=== PATIENT | female | born 1990 | race Caucasian/White ===

== ENCOUNTER → 2017-01-06 | Outpatient (CLI) | payer BC ==
[2017-01-06 16:04] LABS: URINE APPEARANCE CLEAR (CLEAR); URINE BILIRUBIN NEG (NEG); URINE COLOR YELLOW; URINE NITRITE NEG (NEG); URINE PH 6.5 (4.5-7.5); URINE SPECIFIC GRAVITY 1.028 (1.000-1.030); UROBILINOGEN NEG (NEG)
[2017-01-06 16:05] LABS: MANUAL MICROSCOPIC REQUIRED? NO; REVIEW REQ? NO
== END | disposition home or self-care (01) ==
LOC: C.LABSPEC 15:55
PROVIDERS: ATTEND Obstetrics & Gynecology
DX: Z34.90 Encounter for supervision of normal pregnancy, unspecified, unspecified trimester (principal)

== ENCOUNTER → 2017-01-11 | Outpatient (CLI) | payer BC ==
[2017-01-14 02:03] LABS: CHLAMYDIA TRACH RNA*** NOT DETECTED (NOT DETECTED); GC (NEIS GONORRHOEAE)RNA** NOT DETECTED (NOT DETECTED)
== END | disposition home or self-care (01) ==
LOC: C.LABSPEC 17:44
PROVIDERS: ATTEND Obstetrics & Gynecology
DX: Z34.90 Encounter for supervision of normal pregnancy, unspecified, unspecified trimester (principal)

== ENCOUNTER → 2017-01-11 | Outpatient (CLI) | payer BC ==
[2017-01-11 17:15] LABS: BASO % 0.3 %; BASO ABS # 0.02 K/uL (0-0.2); COMPLETE YES; EOS % 1.3 %; HEMATOCRIT 38.7 % (37-47); IG% 0.1 %; LYMPH % 27.3 %; LYMPH ABS # 1.83 K/uL (1.2-3.4); MEAN CELL VOLUME 85.2 fL (80-100); MEAN CORPUSCULAR HEMOGLOBIN 28.6 pg (25-34); MEAN CORPUSCULAR HGB CONC 33.6 g/dl (32-36); MEAN PLATELET VOLUME 11.2 fL (7.4-10.4); PLATELET COUNT 282 K/uL (130-400); RED BLOOD COUNT 4.54 M/uL (4.2-5.4); WHITE BLOOD COUNT 6.71 K/uL (4.8-10.8)
== END | disposition home or self-care (01) ==
LOC: C.LAB1850 16:29
PROVIDERS: ATTEND Obstetrics & Gynecology
DX: Z34.90 Encounter for supervision of normal pregnancy, unspecified, unspecified trimester (principal)

== ENCOUNTER → 2017-03-11 | Outpatient (CLI) | payer BC ==
[2017-03-11 14:50] LABS: GTGD 50 Grams
== END | disposition home or self-care (01) ==
LOC: C.LAB1850 09:42
PROVIDERS: ATTEND Obstetrics & Gynecology
DX: Z34.90 Encounter for supervision of normal pregnancy, unspecified, unspecified trimester (principal)

== ENCOUNTER → 2017-03-25 | Outpatient (CLI) | payer BC | END | disposition home or self-care (01) | LOC: C.LAB1850 07:09 | PROVIDERS: ATTEND Obstetrics & Gynecology | DX: O28.1 Abnormal biochemical finding on antenatal screening of mother (principal) ==

== ENCOUNTER → 2017-06-04 | Outpatient (CLI) | payer BC ==
[2017-06-04 19:00] LABS: URINE APPEARANCE CLEAR (CLEAR); URINE BILIRUBIN NEG (NEG); URINE COLOR YELLOW; URINE EPITHELIAL CELL AUTO >30 /lpf (0-5); URINE NITRITE NEG (NEG); URINE SPECIFIC GRAVITY 1.009 (1.000-1.030); UROBILINOGEN NEG (NEG)
[2017-06-04 19:04] LABS: MANUAL MICROSCOPIC REQUIRED? NO; REVIEW REQ? NO
== END | disposition home or self-care (01) ==
LOC: C.LABSPEC 17:43
PROVIDERS: ATTEND Obstetrics & Gynecology
DX: Z34.93 Encounter for supervision of normal pregnancy, unspecified, third trimester (principal)

== ENCOUNTER → 2017-06-08 | Outpatient (CLI) | payer BC | END | disposition home or self-care (01) | LOC: C.LAB1850 07:19 | PROVIDERS: ATTEND Obstetrics & Gynecology | DX: Z34.93 Encounter for supervision of normal pregnancy, unspecified, third trimester (principal) ==

== ENCOUNTER → 2017-07-30 | Outpatient (CLI) | payer BC | END | disposition home or self-care (01) | LOC: C.LABSPEC 17:36 | PROVIDERS: ATTEND Obstetrics & Gynecology | DX: Z34.93 Encounter for supervision of normal pregnancy, unspecified, third trimester (principal) ==

== ENCOUNTER 2017-08-10 12:17 | Inpatient (IN) | payer BC ==
[~2017-08-10] VITALS: Ht 165.1 cm; Wt 86.4 kg
[2017-08-10] MEDS ORDERED: LACTATED RINGER'S 1000ML 500 ML IV PRN ×2 (13:02→19:19)
[2017-08-10] MEDS ORDERED: LACTATED RINGER'S 1000ML 1,000 ML IV PRN (13:02)
[2017-08-10] MEDS ORDERED: OXYTOCIN 30 UNITS/500ML NSS IV PRN (13:15)
[2017-08-10] MEDS: LACTATED RINGER'S 1000ML 1,000 ML IV SCH ×2 (13:32→21:59)
[2017-08-10 13:34] LABS: HEMATOCRIT 31.9 % (37-47); HEMOGLOBIN 10.3 g/dL (12.0-16.0); MEAN CELL VOLUME 83.3 fL (80-100); MEAN CORPUSCULAR HEMOGLOBIN 26.9 pg (25-34); MEAN CORPUSCULAR HGB CONC 32.3 g/dl (32-36); MEAN PLATELET VOLUME 11.2 fL (7.4-10.4); PLATELET COUNT 210 K/uL (130-400); RED CELL DISTRIBUTION WIDTH CV 14.8 % (11.5-14.5); RED CELL DISTRIBUTION WIDTH SD 44.7 fL (36.4-46.3); WHITE BLOOD COUNT 6.94 K/uL (4.8-10.8)
[2017-08-10 14:09] VITALS: Ht 165.1 cm; Wt 86.4 kg
--- NOTE | 2017-08-10 14:09 | Medical Student: [facility] ---
Med Student History & Physical Date of Service Aug 10, 2017. Chief Complaint R/O Ruptured Membranes History of Present Illness Source: patient, family, spouse, clinic records Patient is a 27 YOF , TAN of 08/21/2017 by LMP, presents at 38 weeks gestation for ruleout ruptured membranes. Patient believes her membranes ruptured at 0730 this morning. She has not felt any contractions despite frequent walking at home. She is currently 7 hours post-rupture. The patient's course was uncomplicated. The patient was initially noted to have placenta previa, however the placenta has since migrated superiorly and is no longer obstructing the cervical os. Patient denied genetic testing. The patient is currently not experiencing any contractions. AB+, HIV negative, HBV negative, VDRL/RPR nonreactive, C/G negative, rubella immune, and GBS negative.1 hr glucose 141mg/dL 2 hr glucose 119 mg/dL with 75g challenge. She did receive influenza vaccine and TDAP vaccine. H&H 38.7/13, platelets 282k OB History G1 02/2011 ended in induced . COMM[employer]ITY [employer]IVING [employer]ACH History Menarche at age 10. LMP 11/14/2016. Menses usually occur regularly at 28 days. Last pap 12/2015 and was read as normal. No history of abnormal pap smears. History of ovarian cysts in the past. Past Medical History Distant history of anemia as a child. Past Surgical History Tonsillectomy and wisdom tooth extraction. Social History Smoking Status: Never Smoker Smokeless Tobacco Use: No Alcohol Use: none Drug Use: none Marital Status: Housing status: lives with significant other Occupational Status: employed Allergies Coded Allergies: No Known Allergies (Unverified , 08/10/17) Home Medications Multivit/Min/Iron/Fol Ac/Pren ( Vitamin), 1 TAB PO DAILY Review of Systems Constitutional: No fever, No chills, No sweats Respiratory: No cough, No wheezing, No shortness of breath Cardiovascular: + edema (trace edema), No chest pain Abdomen: No pain, No nausea, No vomiting, No diarrhea, No constipation Genitourinary - Female: No dysuria Psychiatric: No depression symptoms Physical Exam General Appearance: WD/WN, no apparent distress Head: normocephalic Respiratory/Chest: chest non-tender, lungs clear, normal breath sounds, no respiratory distress, no accessory muscle use Cardiovascular: regular rate, rhythm, no gallop, no JVD, no murmur, normal peripheral pulses Abdomen / GI: normal bowel sounds, non tender, + pertinent finding (Gravid abdomen. Fundal heigth is above the umbillicus and full term. heart tones present. Fetus is vertex. Estimated weight 7.5lbs. ) Fundal Height: Full term Genitourinary - Female: external genitalia normal, normal pelvic exam (Cervix exam performed by Dr. Church noted to be 2 cm dilated, 75% effaced, with fetus at -2 station. ) Extremities: normal inspection, no calf tenderness, + pedal edema (trace) Neurologic/Psych: alert, normal mood/affect, oriented x 3 Skin: normal color, warm/dry, no rash Monitoring External Monitor: Good variability, accels present, no decellerations noted, category 1 tracing, heart rate baseline of 140's. Tocodynamometer: Intermittent uterine irritability without definite regular uterine contractions. Laboratory Results Test 08/10/17 13:07 08/10/17 13:16 Diagnostic Results Patient was tested for ROM with ferning and Nitrazine test and was found to be positive for ROM. Assessment and Plan Assessment: 27 YOF at 38 weeks GA with confirmed rupture of membranes via fern and nitrazine testing. No complications. tracing category 1. Plan: Admit to L&D. CBC ordered. Given patient has been ruptured for 7 hours without development of regular uterine contractions, will start Pitocin now. Will continue to monitor with EFM and Tocometer. Plan for regular cervix checks to monitor progression of labor.
[2017-08-10] MEDS ORDERED: PRENTAB26 PO (14:10)
[2017-08-10] MEDS ORDERED: EpHEDrine SULFATE INJ 50 MG/ML AMP ONE (17:58)
[2017-08-10] MEDS ORDERED: BUPIVACAINE 0.25% 30 ML VIAL ONE (17:58)
[2017-08-10] MEDS ORDERED: FENTANYL 2MCG/ML ROPIV 1.25MG/ML 100ML BAG EPI ONE (17:59)
[2017-08-10] MEDS ORDERED: FENTANYL CITRATE INJ 50 MCG/1 ML 2 ML VIAL ONE (17:59)
[2017-08-10] MEDS ORDERED: NALOXONE HCL INJ 1 MG in SODIUM CHLORIDE 0.9% 1000ML 1,000 ML IV PRN (19:19)
[2017-08-10] MEDS ORDERED: DiphenhydrAMINE HCL 50 MG/ML VIAL IV PRN (19:30)
[2017-08-10] MEDS ORDERED: ONDANSETRON INJ 2 MG/ML 2 ML VIAL IV PRN (19:30)
[2017-08-10] MEDS ORDERED: NALOXONE HCL INJ 0.4 MG/1 ML VIAL/CARP IV PRN (19:30)
[2017-08-10] MEDS ORDERED: NALBUPHINE HCL INJ 10 MG/ML AMP IV PRN (19:30)
[2017-08-10] MEDS ORDERED: EpHEDrine SULFATE INJ 50 MG/ML AMP IV PRN (19:30)
[2017-08-10] MEDS ORDERED: FENTANYL 2MCG/ML ROPIV 1.25MG/ML 100ML BAG EPI PRN (19:30)
[2017-08-11] MEDS ORDERED: ACETAMINOPHEN 325 MG TAB PO PRN (00:15)
[2017-08-11] MEDS ORDERED: SUPERCREAM 0.870 % 15GM JAR EXT PRN (00:15)
[2017-08-11] MEDS ORDERED: ACETAMINOPHEN/CODEINE 300/30MG TAB PO PRN ×2 (00:15)
[2017-08-11] MEDS ORDERED: OXYTOCIN 30 UNITS/500ML NSS IV PRN (00:15)
[2017-08-11] MEDS ORDERED: BENZOCAINE 20% AER SPR 82.5 GM CAN EXT PRN (00:15)
[2017-08-11] MEDS ORDERED: HYDROCORTISONE ACETATE 25 MG SUPP PR PRN (00:15)
[2017-08-11] MEDS ORDERED: LANOLIN OINT EXT PRN (00:15)
[2017-08-11] MEDS ORDERED: DIPHTHERIA/TETANUS/PERTUSSIS 0.5 ML SYR/VIAL IM. ONE (00:15)
[2017-08-11] MEDS: IBUPROFEN 600 MG TAB PO PRN ×3 (01:10→16:02)
--- NOTE | 2017-08-11 01:23 | DELIVERY SUMMARY ---
DATE OF OPERATION: 08/10/2017 FINDINGS: Viable male with Apgars of 8 and 9. Baby delivered spontaneously over a second degree midline laceration. Cord gases and cord blood samples obtained. Placenta delivered spontaneously and laceration repaired with 4-0 Vicryl in routine fashion. Estimated blood loss 300 mL. LABOR NOTE: The patient is a 27-year-old 2, para 0 with an EDC of 21 August at 38+ weeks gestational age presented with spontaneous rupture of membranes. The patient states her membranes ruptured approximately at 1600 hours on day of delivery. She described the fluid as clear. She has been having mild irregular contractions since rupture of membranes. The patient has had a benign course, her blood type is AB positive, antibody negative, rubella immune, hepatitis B negative, she declined a quad screen, she had an elevated 1-hour Glucola at 16 weeks with normal glucose tolerance tests at 16 and 28 weeks and a negative trimester beta strep culture. Upon admission, the patient was 2 cm dilated, 75% effaced, -2 station with a positive AmniSure. Tracing was category 1. Because of the rupture of membranes and the positive GBS status, the patient was started on Pitocin per induction protocol. She was given penicillin 6 million unit loading dose and 3 million units every 4 hours until delivery. The patient was observed for approximately 5 hours on the Pitocin. She was having regular contractions that were mild to palpation. The examination showed no change in the cervix and her forebag was ruptured and an intrauterine pressure catheter was inserted. After that her contractions increased markedly in intensity. Anesthesia was consulted and an epidural was placed. The patient progressed to full dilatation and began her second stage. She pushed for little over an hour, delivering a viable male infant with description as above. Cord was clamped and cut. Cord gases and cord blood samples obtained. Placenta delivered spontaneously. A midline second degree laceration was repaired with 4-0 Vicryl in a routine fashion. Estimated blood loss 300 mL. Sponge and needle count was correct. I attest to the content of the Intraoperative Record and any orders documented therein. Any exception s are noted below.
[2017-08-11 03:05] VITALS: BP 102/59; PULSE 107; TEMP 37.4
--- NOTE | 2017-08-11 06:45 | Progress Note ---
Subjective Aug 11, 2017. Subjective conversation w/ patient (pt feeling well, getting up to walk around with no s/s pre-syncope or syncope. Tried to go to the bathroom to urinate but unable to start the stream. ), physical exam, chart review, lab review Ambulation: ambulating normally Voiding: requires PRN straight cath (nurse room straight cathing this morning, evacuating 1400 cc's) Lochia: Moderate Feeding Type: Breast Feeding Pain: controlled Review of Systems Respiratory: No shortness of breath Cardiac: No palpitations Female : + problem reported (as above), No dysuria Objective Vital Signs Date Time Temp Pulse Resp B/P (MAP) Pulse Ox O2 Delivery O2 Flow Rate FiO2 08/11/17 03:05 37.4 107 18 102/59 (73) Room Air 08/11/17 03:05 Room Air Physical Exam General Appearance: WELL-APPEARING, WD/WN, NO APPARENT DISTRESS Respiratory/Chest: lungs clear, normal breath sounds, no respiratory distress Cardiovascular: regular rate, rhythm, no gallop Abdomen: normal bowel sounds, soft Fundus: Firm, Non-Tender, Relation to Umbilicus (at U) Extremities: normal inspection, no calf tenderness Laboratory Results Last 24 Hours Test 08/10/17 13:07 08/10/17 13:16 08/11/17 06:08 White Blood Count 6.94 K/uL Red Blood Count 3.83 M/uL Hemoglobin 10.3 g/dL Hematocrit 31.9 % Mean Corpuscular Volume 83.3 fL Mean Corpuscular Hemoglobin 26.9 pg Mean Corpuscular Hemoglobin Concent 32.3 g/dl RDW Standard Deviation 44.7 fL RDW Coefficient of Variation 14.8 % Platelet Count 210 K/uL Mean Platelet Volume 11.2 fL Assessment and Plan Post- Day#: 1 Continue Routine Care: 27 yof , s/p 08/10 at 2345. AB+/RI/GBS - Vitals reviewed and wnl Hgb reviewed, stable. Today's pending. No s/s anemia Pt doing clinically well, required straight cath this morning, voided 1400 cc per nurse. Continue routine care, encourage ambulation, support, monitor lochia, pain control. YINA DILLON FMR PGY 1 Resident Physician Supervision Note: I interviewed and examined the patient. Discussed with Dr. Dillon and agree with findings and plan as documented in the note. Any exceptions or clarifications are listed here: [None] Documented By: Hipolito Church Resident Tracking Resident Involvement: Resident Care Provided Care Provided: OB Delivery
[2017-08-11 07:29] LABS: HEMATOCRIT 28.4 % (37-47)
[2017-08-11 07:37] VITALS: BP 118/77; PULSE 86; TEMP 36.9; O2SAT 100
--- NOTE | 2017-08-11 07:59 | Anesthesia Procedure Note ---
Anesthesia Epidural Removal Nt Date & Time Aug 11, 2017 at 07:59 Vital Signs Pain Intensity: 0.0 Vital Signs Past 12 Hours Date Time Temp Pulse Resp B/P (MAP) Pulse Ox O2 Delivery O2 Flow Rate FiO2 08/11/17 03:05 37.4 107 18 102/59 (73) Room Air 08/11/17 03:05 Room Air Notes Mental Status: alert / awake / arousable, participated in evaluation Nausea / Vomiting: adequately controlled Pain: adequately controlled Airway Patency, RR, SpO2: stable & adequate BP & HR: stable & adequate Hydration State: stable & adequate Neuraxial Anesthesia: was administered Anesthetic Complications: no major complications apparent, pt satisfied with anesthetic care Epidural: removed without complications, with tip intact
[2017-08-11] MEDS: FERROUS SULFATE 325 MG TAB PO SCH (08:32)
[2017-08-11] MEDS: PRENATAL VITAMIN TAB PO SCH (08:32)
[2017-08-11] MEDS: DOCUSATE SODIUM 100 MG CAP PO SCH ×2 (08:32→19:43)
[2017-08-11 11:05] VITALS: BP 119/78; PULSE 84; TEMP 36.6; O2SAT 98
[2017-08-11 19:50] VITALS: BP 113/68; PULSE 80; TEMP 37.1
[2017-08-12 00:15] VITALS: BP 121/82; PULSE 88; TEMP 36.7
[2017-08-12] MEDS: IBUPROFEN 600 MG TAB PO PRN ×2 (03:07→08:43)
--- NOTE | 2017-08-12 06:50 | Progress Note ---
Subjective Aug 12, 2017. Subjective conversation w/ patient, physical exam, chart review, lab review Ambulation: ambulating normally Voiding: no voiding problems Diet Tolerance: Regular Diet Lochia: Moderate Feeding Type: Breast Feeding Pain: controlled Review of Systems Respiratory: No shortness of breath Cardiac: No palpitations Abdomen: No vomiting Female : No dysuria Objective Vital Signs Date Time Temp Pulse Resp B/P (MAP) Pulse Ox O2 Delivery O2 Flow Rate FiO2 08/12/17 00:15 Room Air 08/12/17 00:15 36.7 88 18 121/82 (95) 08/11/17 19:50 37.1 80 20 113/68 (83) Room Air 08/11/17 11:05 36.6 84 16 119/78 (92) 98 Room Air 08/11/17 07:37 36.9 86 18 118/77 (91) 100 Room Air 08/11/17 07:37 100 Room Air Physical Exam General Appearance: WELL-APPEARING, WD/WN, NO APPARENT DISTRESS Respiratory/Chest: lungs clear, normal breath sounds, no respiratory distress Cardiovascular: regular rate, rhythm Abdomen: soft Fundus: Firm, Non-Tender, Relation to Umbilicus (1 below U) Extremities: no calf tenderness Laboratory Results Last 24 Hours Test 08/11/17 07:08 08/11/17 08:30 Hemoglobin 9.0 g/dL Hematocrit 28.4 % Assessment and Plan Post- Day#: 2 Continue Routine Care: 27 yof , s/p 08/10 at 2345. AB+/RI/GBS - Vitals reviewed and wnl Hgb reviewed, stable. No s/s anemia Pt doing clinically well, urinating normally without any issues. Continue routine care, encourage ambulation, support, monitor lochia, pain control. Counselled on dc instructions. YINA DILLON FMR PGY 1 Resident Physician Supervision Note: I was present with Dr. Serg Dillon during the history and exam. I discussed the case with the resident and agree with the findings and plan as documented in the note. Any exceptions or clarifications are listed here: doing well. ready for discharge, instructions reviewed. f/u 6 wk pp. Documented By: Christie Soto Resident Tracking Resident Involvement: Resident Care Provided Care Provided: OB Delivery
--- NOTE | 2017-08-12 06:59 | Discharge Instructions ---
Discharge Instructions Date of Service Aug 12, 2017. Admission Reason for Admission: R/O Ruptured Membranes Discharge Discharge Diagnosis / Problem: Spontaneous Vaginal Delivery Discharge Goals Goal(s): Routine recovery after delivery Medications Continue Dispensed Medications: supercream, dermaplast, tucks, lansinoh Activity Recommendations Activity Limitations: per Instructions/Follow-up section . Instructions / Follow-Up Instructions / Follow-Up ACTIVITY RECOMMENDATIONS: * Gradual return to full activity over the next 2-3 weeks. * No lifting - nothing heavier than baby over the next 2-3 weeks. * Do not engage in vigorous exercise, sexual activity or sports until cleared by your physician. * Do not drive or operate any motorized equipment until cleared by your physician. * You may shower/bathe daily. MEDICATIONS: For discomfort or pain, you may use Acetaminophen (Tylenol), Ibuprofen (Advil), or Naproxen (Aleve) following the package directions. For constipation you may use Colace following the package directions. BREAST CARE: If you are not breast feeding: * Wear a supportive bra 24 hours a day for one to two weeks. * Avoid stimulating your breasts and nipples as much as possible during the first few weeks after delivery. * When taking a shower, have the warm water hit your back, not breasts. * When your breasts feel full, apply ice packs. Usually three to four times a day helps ease the discomfort. * Take a mild pain medication (Tylenol / Motrin) when you are uncomfortable. If breast feeding: * Use breast milk to lubricate nipples. Lansinoh cream may be used for sore nipples. You do not need to remove cream prior to breast feeding. If using a different brand of cream, check the label for directions regarding removal of cream prior to nursing. * Wear a supportive bra. * If having problems with breasts or breast feeding, call a programmer analyst consultant or your health care provider. EPISIOTOMY CARE: After delivery, if you have an episiotomy (stitches), the following steps will ease discomfort and aid healing. * For the first 24 hours after delivery, place ice packs next to your episiotomy to help reduce swelling. * After the first 24 hour-period, sitz baths, either portable or in the tub, are suggested. A shower with a shower arm sprayed over the episiotomy may be comforting. * Rosalia care should be done after each voiding and bowel movement. Squirt warm water from a plastic bottle over the perineum (region of the body between the anus and urinary opening) and pat dry. * Use Dermoplast to ease discomfort. Shake container. [place] directly over the episiotomy. Place a Tucks on a clean sanitary pad next to your episiotomy. SPECIAL CARE INSTRUCTIONS: When you are discharged from the hospital, it is important for you to follow the instructions listed below: * During the first week at home, you should be able to care for yourself and your baby. In addition, the usual light household activities are encouraged. * Limit your activities to the way you feel. Do not try to clean the house or move furniture. Be sensible. * If you actively engage in sports and have done so up until the time of your delivery, you may resume these activities as soon as you feel able. This may take up to one month or even longer. Use good judgment. * Continue to take your vitamins for at least six weeks after the of your baby. * Your diet need not be limited unless you were on a special diet before your delivery. Breast-feeding mothers need around 2500 calories per day and at least 64-80 ounces of fluid per day (8 to 10 glasses). * You should eat foods from the four major food groups. Crash diets or fad diets are to be avoided. Eating lean meats, fresh fruits and vegetables, low-fat dairy products, high fiber foods and a regular exercise program, will help you get back to your pre- weight without putting your health at risk. * Constipation is sometimes a problem after delivery. Take a mild laxative as needed. If breast feeding, Milk of Magnesia is acceptable to use. You may use a suppository or Fleets enema if no episiotomy. * A daily shower or tub bath is suggested. Be sure to thoroughly and gently dry the perineum. * A bloody vaginal discharge will usually continue until around four weeks post . A small amount of bleeding may continue for as long as six weeks. Vaginal discharge changes from the bright red bleeding after delivery to pink then brownish and finally yellowish-pink before becoming white and disappearing. * Bleeding may increase with activity. Your first period may come in 4-8 weeks. If you are breast feeding, your period may be delayed even longer. * Perdido (sex) can begin whenever both you and your partner feel comfortable and do not have any form of genital infection. It is recommended that you wait at least six weeks for internal and external healing to occur. If you have questions, please talk to your health care practitioner. A condom should be used to prevent infection and . * Foreplay, gentle intercourse and lubrication is very important the first several times to prevent pain. A water-based lubricant such as K-Y jelly or Astroglide may be used. * If you have RH negative blood and your baby is RH positive, you will receive RHOGAM by injection prior to discharge. The nurse will give you a card to keep with you that has the date and place that you received RHOGAM after delivery. * During your care, you had a Rubella screen done to check for the presence of rubella antibodies in your blood. If your test was negative, you will receive a Rubella vaccine prior to discharge. This vaccine may cause a fever, soreness at the injection site and flu-like symptoms. If these symptoms persist, notify your health care practitioner. is not advised for one month after a Rubella vaccine. * Verbalizes understanding of car seat law as reviewed with patient nursing. * Car Seat hand-out given and reviewed with patient by nursing. * Shaken baby information reviewed with patient by nursing. Call you doctor if: * Heavy bleeding (saturating several pads an hour) or passing clots the size of your fist. * A fever >101 degrees F (38.3 degrees C) on two occasions four hours apart and /or chills. * Unusual pain in the pelvic or vaginal areas. * "Baby Blues" lasting longer than two weeks. If you have any questions or concerns, call your health care practitioner at . FOLLOW UP VISIT: * Please call the office at to schedule a 6 week examination. It is important you keep this appointment. It is important for you to make arrangements for either yearly or twice yearly check-ups thereafter. Current Hospital Diet Patient's current hospital diet: Regular OB Diet Discharge Diet Recommended Diet: Regular Diet Pending Studies Studies pending at discharge: no Medical Emergencies . Who to Call and When: Medical Emergencies: If at any time you feel your situation is an emergency, please call 911 immediately. . Non-Emergent Contact Non-Emergency issues call your: Primary Care Provider . . "Provider Documentation" section prepared by Catherine Dillon. . VTE Core Measure Inpt VTE Proph given/why not?: Treatment not indicated Resident Tracking Resident Involvement: Resident Care Provided Care Provided: OB Delivery
[2017-08-12 08:03] VITALS: BP 117/81; PULSE 81; TEMP 36.6; O2SAT 100
[2017-08-12] MEDS: FERROUS SULFATE 325 MG TAB PO SCH (08:41)
[2017-08-12] MEDS: DOCUSATE SODIUM 100 MG CAP PO SCH (08:41)
[2017-08-12] MEDS: PRENATAL VITAMIN TAB PO SCH (08:41)
[2017-08-12 14:40] VITALS: BP_DIAS 81; PULSE 81; TEMP 36.6
[2017-08-12] MEDS ORDERED: BISACODYL 5 MG TABEC PO SCH (20:00)
== END 2017-08-12 14:40 | disposition home or self-care (01) | DRG 775 ==
LOC: C.OPB 12:17 → C.LD 12:18 → C.OPB 13:04 → C.LD 13:04 → C.OBG 08-11 02:48
PROVIDERS: ADMIT Obstetrics & Gynecology; ATTEND Obstetrics & Gynecology
PROC: 0KQM0ZZ Repair Perineum Muscle, Open Approach (ICD-10-PCS; principal; 2017-08-10)
PROC: 10E0XZZ Delivery of Products of Conception, External Approach (ICD-10-PCS; principal; 2017-08-10)
DX: O70.1 Second degree perineal laceration during delivery (principal); Z37.0 Single live birth; O99.824 Streptococcus B carrier state complicating childbirth; Z3A.38 38 weeks gestation of pregnancy

== ENCOUNTER 2017-08-14 20:41 | Emergency (ER) | payer BC ==
[~2017-08-14] VITALS: Ht 167.6 cm; Wt 84.2 kg
[~2017-08-14 20:41] MED LIST: PRENTAB26 PO
[2017-08-14 20:48] VITALS: TEMP 36.9; Ht 167.6 cm; Wt 84.2 kg
--- NOTE | 2017-08-14 21:41 | EMERGENCY ROOM VISIT NOTE ---
History First contact with patient: 21:13 Chief Complaint: URINARY SYMPTOMS Stated Complaint: UTI AFTER CHILD Nursing Triage Summary: see triage note History of Present Illness The patient is a 27 year old female who presents to the Emergency Room with complaints of urinary frequency and burning for the last 4 days. The patient is day #4. She had a vaginal delivery. The day after delivery, the patient had urinary retention. A Kent catheter was placed. The patient is also complaining of left-sided flank pain and lower abdominal achiness. She also felt febrile with chills and body aches. She took Aleve prior to arrival. The patient was first seen at [facility]. She was sent here for further evaluation. The bleeding has been mild to moderate. Of note, the patient had a second-degree tear with a vaginal delivery and had to have sutures Review of Systems 10 system review performed and negative unless noted in HPI or below Past Medical/Surgical History Medical Problems: (1) Encounter for supervision of normal intrauterine in primigravida, antepartum (2) Ovarian cyst, right (3) Pelvic pain in female Social History Smoking Status: Never Smoker Alcohol Use: occasionally Drug Use: none Marital Status: Housing Status: lives with significant other Occupation Status: employed Current/Historical Medications Scheduled Docusate Sodium (Colace), 1 CAP PO BID Multivit/Min/Iron/Fol Ac/Pren ( Vitamin), 1 TAB PO DAILY Scheduled PRN Naproxen (Aleve), 220 MG PO Q12 PRN for Pain Physical Exam Vital Signs Date Time Temp Pulse Resp B/P (MAP) Pulse Ox O2 Delivery O2 Flow Rate FiO2 08/14/17 23:42 75 18 126/75 99 Room Air 08/14/17 20:48 36.9 76 18 127/73 99 Room Air Physical Exam VITALS: Vitals are noted on the nurse's note and reviewed by myself. Vital signs stable. GENERAL: 27-year-old female, in no acute distress, nondiaphoretic, well- developed well-nourished. SKIN: The skin was without rashes, erythema, edema, or bruising. HEAD: Normocephalic atraumatic. NECK: Supple without nuchal rigidity. . No JVD. HEART: Regular rate and rhythm without murmurs gallops or rubs. LUNGS: Clear to auscultation bilaterally without wheezes, rales or rhonchi. No accessory muscle use. ABDOMEN: Positive bowel sounds x 4.Soft, without organomegaly. No guarding or rebound tenderness. Mild tenderness to palpation diffusely in the lower abdomen. No CVA tenderness bilaterally. MUSCULOSKELETAL: No muscle atrophy, erythema, or edema noted. Strength 5/5 throughout. NEURO: Patient was alert and oriented to person place and time. Normal sensation to touch. No focal neurological deficits. Medical Decision & Procedures Laboratory Results 08/14/17 21:40 Red Blood Count 3.11, Mean Corpuscular Volume 84.6, Mean Corpuscular Hemoglobin 27.0, Mean Corpuscular Hemoglobin Concent 31.9, Mean Platelet Volume 10.4, Neutrophils (%) (Auto) 66.7, Lymphocytes (%) (Auto) 19.7, Monocytes (%) (Auto) 9.2, Eosinophils (%) (Auto) 3.5, Basophils (%) (Auto) 0.4, Neutrophils # (Auto) 4.90, Lymphocytes # (Auto) 1.45, Monocytes # (Auto) 0.68, Eosinophils # (Auto) 0.26, Basophils # (Auto) 0.03 08/14/17 21:40 Test 08/14/17 21:40 08/14/17 22:52 White Blood Count 7.36 K/uL (4.8-10.8) Red Blood Count 3.11 M/uL (4.2-5.4) Hemoglobin 8.4 g/dL (12.0-16.0) Hematocrit 26.3 % (37-47) Mean Corpuscular Volume 84.6 fL (80-100) Mean Corpuscular Hemoglobin 27.0 pg (25-34) Mean Corpuscular Hemoglobin Concent 31.9 g/dl (32-36) Platelet Count 237 K/uL (130-400) Mean Platelet Volume 10.4 fL (7.4-10.4) Neutrophils (%) (Auto) 66.7 % Lymphocytes (%) (Auto) 19.7 % Monocytes (%) (Auto) 9.2 % Eosinophils (%) (Auto) 3.5 % Basophils (%) (Auto) 0.4 % Neutrophils # (Auto) 4.90 K/uL (1.4-6.5) Lymphocytes # (Auto) 1.45 K/uL (1.2-3.4) Monocytes # (Auto) 0.68 K/uL (0.11-0.59) Eosinophils # (Auto) 0.26 K/uL (0-0.5) Basophils # (Auto) 0.03 K/uL (0-0.2) RDW Standard Deviation 47.0 fL (36.4-46.3) RDW Coefficient of Variation 15.4 % (11.5-14.5) Immature Granulocyte % (Auto) 0.5 % Immature Granulocyte # (Auto) 0.04 K/uL (0.00-0.02) Red Blood Cell Morphology Unremarkable Anion Gap 6.0 mmol/L (3-11) Est Creatinine Clear Calc Drug Dose 93.5 ml/min Estimated GFR () 91.5 Estimated GFR (Non- 78.9 BUN/Creatinine Ratio 12.9 (10-20) Calcium Level 8.9 mg/dl (8.5-10.1) Urine Color YELLOW Urine Appearance CLEAR (CLEAR) Urine pH 7.0 (4.5-7.5) Urine Specific [place] 1.008 (1.000-1.030) Urine Protein NEG (NEG) Urine Glucose (UA) NEG (NEG) Urine Ketones NEG (NEG) Urine Occult Blood TRACE (NEG) Urine Nitrite NEG (NEG) Urine Bilirubin NEG (NEG) Urine Urobilinogen NEG (NEG) Urine Leukocyte Esterase TRACE (NEG) Urine WBC (Auto) 1-5 /hpf (0-5) Urine RBC (Auto) 0-4 /hpf (0-4) Urine Hyaline Casts (Auto) 1-5 /lpf (0-5) Urine Epithelial Cells (Auto) 20-30 /lpf (0-5) Urine Bacteria (Auto) NEG (NEG) Medications Administered Medications (Trade) Dose Ordered Sig/Mihaela Route Start Time Stop Time Status Last Admin Dose Admin Ketorolac Tromethamine (Toradol Inj) 30 mg NOW STAT IV 08/14/17 23:37 08/14/17 23:38 DC 08/14/17 23:42 30 MG ED Course Patient was seen and examined Vital signs including blood pressure were reviewed medications list was verified with patient Labs were obtained, and a saline lock was established The patient's workup was reviewed. The findings were discussed with my supervising physician. The patient was reassessed. She was provided with a breast pump. We discussed the results of her workup. She voiced understanding. The patient was given 1 dose of Toradol 30 mg IV. She was also given home pack of ibuprofen 600 mg. She was comfortable being discharged home. I reviewed discharge instructions the patient. They voiced understanding and had no further questions. Medical Decision Differential diagnosis: UTI, interstitial cystitis, pyelonephritis, aseptic cystitis, endometritis, sepsis, musculoskeletal pain This patient is a 27-year-old female day #4 the complains of urinary frequency, dysuria and flank pain. On exam, she is nontoxic in appearance. She had no CVA tenderness. A straight cath was performed for a clean urinalysis. This only showed a trace of leukoesterase and 1-5 white blood cells. I do not believe she has a urinary tract infection. It is possible that she has irritation of the urethra due to catheterizations during her delivery. The patient is afebrile here. There is no leukocytosis. Her abdomen is benign. I do not suspect endometritis. I believe she is stable to be discharged home with close follow-up. She was informed to monitor her temperature. She will contact her OB doctor as soon as possible for a follow- up appointment. She agrees to return to the emergency department with any new or concerning symptoms. This chart was completed in part utilizing [employer] Speech Voice Recognition software. Attempts were made to minimize the grammatical errors, random word insertions, pronoun errors and incomplete sentences. Any formal questions or concerns about the content, text or information contained within the body of this dictation should be directly addressed to the provider for clarification. Medication Reconcilliation Current Medication List: was personally reviewed by me Blood Pressure Screening Patient's blood pressure: Normal blood pressure Impression Primary Impression: Dysuria Departure Information Dispostion Home / Self-Care Condition GOOD Referrals No Doctor, Assigned (PCP) Hipolito Church M.D. Patient Instructions My [facility] Additional Instructions You has been evaluated in the emergency department for flank pain and urinary symptoms. It does not appear that your urine is infected. Ibuprofen 600 mg and/or Tylenol 1000 mg every 8 hours as needed for pain You may also alternate these medications for more effective pain relief: Ibuprofen --4 HRS--> Tylenol --4 HRS--> ibuprofen --4 HRS--> Tylenol .... Please try to rest and stay well-hydrated. Increase fluids over the next several days. It is very important to follow up with her OB doctor as soon as possible. Please call either tomorrow morning or Wednesday morning for a follow-up plan. Please do not hesitate to return to the emergency department with any new, worsening or concerning symptoms; especially, worsening pain, fever or vomiting.
[2017-08-14] MEDS ORDERED: NAPR1TAB9 PO (21:49)
[2017-08-14] MEDS ORDERED: DOCU-94 PO (21:49)
[2017-08-14 21:50] LABS: BASO % 0.4 %; BASO ABS # 0.03 K/uL (0-0.2); EOS % 3.5 %; EOS ABS # 0.26 K/uL (0-0.5); HEMATOCRIT 26.3 % (37-47); HEMOGLOBIN 8.4 g/dL (12.0-16.0); IG# 0.04 K/uL (0.00-0.02); LYMPH % 19.7 %; LYMPH ABS # 1.45 K/uL (1.2-3.4); MEAN CELL VOLUME 84.6 fL (80-100); MEAN CORPUSCULAR HGB CONC 31.9 g/dl (32-36); MEAN PLATELET VOLUME 10.4 fL (7.4-10.4); MONO % 9.2 %; MONO ABS # 0.68 K/uL (0.11-0.59); NEUT % 66.7 %; PLATELET COUNT 237 K/uL (130-400); RED CELL DISTRIBUTION WIDTH CV 15.4 % (11.5-14.5); WHITE BLOOD COUNT 7.36 K/uL (4.8-10.8)
[2017-08-14 22:07] LABS: CALCIUM 8.9 mg/dl (8.5-10.1); CREATININE 0.97 mg/dl (0.60-1.20); POTASSIUM 3.6 mmol/L (3.5-5.1)
[2017-08-14] MEDS ORDERED: KETOROLAC TROMETHAMINE 30 MG/ML VIAL IV STA (23:37)
[2017-08-14] MEDS ORDERED: MOTRIN HOME PACK 600 MG (4)BTL PO ONE (23:45)
[2017-08-15 00:25] VITALS: BP 113/74; PULSE 74; O2SAT 99
== END 2017-08-15 00:26 | disposition home or self-care (01) ==
LOC: C.EDB 20:42 → C.EDC 08-15 00:26
DX: R30.0 Dysuria (principal)

== ENCOUNTER → 2017-09-20 | Outpatient (CLI) | payer BC ==
[~2017-09-20] MED LIST changes: +DOCU-94 PO; +NAPR1TAB9 PO
== END | disposition home or self-care (01) ==
LOC: C.PAPS 10:53
PROVIDERS: ATTEND Obstetrics & Gynecology
DX: Z01.419 Encounter for gynecological examination (general) (routine) without abnormal findings (principal)

== ENCOUNTER → 2017-09-22 | Outpatient (CLI) | payer BC ==
--- NOTE | 2017-09-23 08:00 | MAMMOGRAPHY REPORT ---
ASPIRATION RIGHT BREAST: 09/22/2017 CLINICAL HISTORY: Lactating female with mixed echogenicity fluid collection in the right 12:00 breast . PATIENT CONSENT: The procedure and risks of ultrasound-guided aspiration were discussed in full with the patient. Both oral and written consents were obtained. PROCEDURE DESCRIPTION: With ultrasound guidance, aseptic technique, and 1% lidocaine as a local anest hetic, aspiration was performed of the large mixed echogenicity fluid collection in the right 12:00 b reast using an 18-gauge needle attached to a syringe. Approximately 38 cc of cloudy purulent fluid w as aspirated and a sample was sent to cytology in saline for Gram stain, culture, and cytology. Dire ct pressure was applied to the site immediately post procedure and hemostasis was achieved. The sheldon ent tolerated the procedure without complication. COMPARISON: Comparison is made to exams dated: 09/22/2017 ultrasound and 09/22/2017 mammogram - [facility]. IMPRESSION: ASPIRATION Ultrasound-guided aspiration of the fluid collection in the right 12:00 breast. Approximately 38 cc of purulent fluid was aspirated and sent to cytology for analysis. The patient will receive cytology results from her referring provider. Dacia Yates M.D. /:09/22/2017 12:15:03 Account Representative: Pratima NICHOLS(Jessica)(M), [facility]
--- NOTE | 2017-09-23 08:04 | MAMMOGRAPHY REPORT ---
UNILATERAL RIGHT DIGITAL DIAGNOSTIC MAMMOGRAM TOMOSYNTHESIS WITH CAD AND TARGETED RIGHT ULTRASOUND: CLINICAL HISTORY: 89-enlw-rqd-year-old woman presents with a golf ball sized lump and pain in the sup erior right breast. She is currently lactating and 6 weeks . She has noticed a painful jocelyn mp for approximately 3-4 weeks. Mild skin erythema of the superior right breast. TECHNIQUE: Right breast tomosynthesis in addition to standard 2D mammography was performed. Current s michelle was also evaluated with a Computer Aided Detection (CAD) system. COMPARISON: Comparison is made to exam dated: 09/22/2017 ultrasound - [facility]. BREAST COMPOSITION: The tissue of the right breast is extremely dense, which lowers the sensitivity of mammography. FINDINGS: First targeted ultrasound was performed throughout the superior right breast in the area of lump and pain pointed out by the patient. On palpation, the superior right breast is firm in textur e from the 11:00 through 1:00 axes. On ultrasound, centered in the 12:00 right breast, 2 cm from the nipple there is mild edema surrounding fat lobules in the superficial breast. Also mild right breas t skin thickening. In the area of lump and pain, there is a lobulated 4.0 x 3.3 x 5.0 cm mass that d emonstrates undulating an peripheral anechoic rind and is centrally isoechoic. No internal blood fl ow is documented. Given the associated findings of skin erythema and pain this most likely represent s mastitis with abscess, but given the central isoechoic tissue within the mass, a solid mass cannot be completely excluded. Therefore mammography was performed. Right CC and MLO 2D and tomosynthesis images were obtained. The breast parenchyma is extremely dense but there is a suggested 5 cm mass occupying the superior right breast, best seen on the MLO view, c orrelating with the mammographic mass. No associated architectural distortion or suspicious calcific ations are seen. IMPRESSION: ACR BI-RADS CATEGORY 4: SUSPICIOUS, TARGETED ULTRASOUND ACR BI-RADS CATEGORY 4: SUSPICIO US 1. The palpable painful 5 cm mass in the 12:00 right breast most likely represents an abscess, in th e background of mastitis. 2. Ultrasound-guided aspiration versus core needle biopsy is recommended to exclude the possibility of a solid mass, and also for culture, Gram stain and sensitivity. These results and recommendations were discussed with the patient and her at the time of the exam. The procedure was performed during the same appointment, and please refer to a separate report for full detail. Approximately 10% of breast cancers are not detected with mammography. A negative mammographic report should not delay biopsy if a clinically suggestive mass is present. Татьяна Gomez M.D. ay/:09/22/2017 11:57:18 Wool Tamper: Pratima NICHOLS(R)(M), [facility] letter sent: Abnormal 4/5 BI-RADS Code: ACR BI-RADS Category 4: Suspicious Ultrasound BI-RADS: ACR BI-RADS Category 4: Suspici ous
== END | disposition home or self-care (01) ==
LOC: C.MAMM 10:50
PROVIDERS: ATTEND Obstetrics & Gynecology
DX: R92.8 Other abnormal and inconclusive findings on diagnostic imaging of breast (principal); N63.10 Unspecified lump in the right breast, unspecified quadrant; N64.89 Other specified disorders of breast

== ENCOUNTER → 2017-09-30 | Outpatient (CLI) | payer BC ==
--- NOTE | 2017-10-01 13:55 | MAMMOGRAPHY REPORT ---
ASPIRATION RIGHT BREAST: 09/30/2017 CLINICAL HISTORY: The patient is currently breast-feeding. She underwent drainage of a abscess in th e right 12:00 breast on 09/22/2017 in which approximately 38 cc of fluid was aspirated. The patient wa s feeling better until a few days later, in which the lump returned and erythema of the overlying ski n increased. She is currently on antibiotics. Findings/Procedure: First, a repeat targeted ultrasound was performed of the area of the palpable lump and associated ove rlying skin erythema in the right 12:00 breast, approximately 2 cm from the nipple. At the site of t he palpable lump there is a recurrent hypoechoic fluid collection which measures 3.1 x 2.4 x 3.6 cm, concerning for recurrent abscess. Therefore, the decision was made to aspirate the fluid collection. The procedure and risks of ultrasound-guided aspiration were discussed in full with the patient. Bot h oral and written consents were obtained. With ultrasound guidance, aseptic technique, and 1% lido martin as a local anesthetic, aspiration was performed of the fluid collection in the right 12:[address] Approximately 22 cc of cloudy bloody fluid was aspirated and a sample was sent to microbiology f or Gram stain and culture. Direct pressure was applied to the site immediately post procedure and hem ostasis was achieved. The fluid collection was no longer evident on postprocedural ultrasound. There is residual ill-defined heterogeneously hypoechoic tissue in the region, which could represent infla mmatory changes/phlegmon and/or lactational changes. The patient tolerated the procedure without com plication. COMPARISON: Comparison is made to exams dated: 09/22/2017 ultrasound, 09/22/2017 mammogram, and 09/22/2017 aspiration - [facility]. IMPRESSION: ASPIRATION 1. Hypoechoic 3.1 cm fluid collection in the right 12:00 breast, consistent with recurrent abscess. 2. Status post ultrasound-guided aspiration of the recurrent abscess in the right 12:00 breast. [place] roximately 22 cc of bloody fluid was aspirated and a sample was sent to microbiology for Gram stain a nd culture. The patient will receive microbiology results from her referring provider. Recommend co ntinued clinical follow-up; if the symptoms do not resolve and/or the lump recurs, recommend surgical consultation. Results were discussed with Dr. Hovick over the telephone. Dacia Yates M.D. ah/:09/30/2017 16:02:41 Proof Operator: Jo Ann COOK)Jennifer), [facility]
== END | disposition home or self-care (01) ==
LOC: C.MAMM 14:59
PROVIDERS: ATTEND Obstetrics & Gynecology
DX: N63.10 Unspecified lump in the right breast, unspecified quadrant (principal); N61.1 Abscess of the breast and nipple

== ENCOUNTER 2019-06-11 18:51 | Inpatient (IN) ==
[2019-06-11] MEDS ORDERED: LACTATED RINGER'S 1,000 ML IV PRN (19:04)
[2019-06-11] MEDS ORDERED: ePHEDrine sulfate 50 MG/ML AMP ONE (19:12)
[2019-06-11] MEDS ORDERED: fentaNYL citrate 100 MCG/2 ML VIAL ONE (19:12)
[2019-06-11] MEDS ORDERED: BUPIVACAINE 0.25% 30 ML VIAL ONE (19:12)
[2019-06-11] MEDS ORDERED: fentaNYL 2MCG/ML ROPIV 1.25MG/ML 100 ML BAG EPI ONE (19:13)
[2019-06-11 19:37] LABS: Hematocrit (blood only) 30.8 % (37-47); Hemoglobin 9.6 g/dL (12.0-16.0); Mean Corpuscular Hemoglobin 24.7 pg (25-34); Mean Corpuscular Volume 79.4 fL (80-100); Mean Platelet Volume 10.6 fL (7.4-10.4); Platelet Count 178 K/uL (130-400); RDW Coefficient of Variation 16.1 % (11.5-14.5); RDW Standard Deviation 46.4 fL (36.4-46.3); Red Blood Count 3.88 M/uL (4.2-5.4); White Blood Count 6.85 K/uL (4.8-10.8)
[2019-06-11 19:38] LABS: Mean Corpuscular Hgb Conc 31.2 g/dL (32-36)
[2019-06-11] MEDS ORDERED: ONDANSETRON INJ 2 MG/ML 2 ML VIAL IV PRN (19:46)
[2019-06-11] MEDS ORDERED: DiphenhydrAMINE HCL 50 MG/ML VIAL IV PRN (19:46)
[2019-06-11] MEDS ORDERED: NALOXONE HCL 1 MG in SODIUM CHLORIDE 0.9% 1000ML 1,000 ML IV PRN (19:46)
[2019-06-11] MEDS ORDERED: ePHEDrine sulfate 50 MG/ML AMP IV PRN (19:46)
[2019-06-11] MEDS ORDERED: fentaNYL 2MCG/ML ROPIV 1.25MG/ML 100 ML BAG EPI PRN (19:46)
[2019-06-11] MEDS ORDERED: NALBUPHINE HCL INJ 10 MG/ML AMP IV PRN (19:46)
[2019-06-11] MEDS ORDERED: NALOXONE HCL 0.4 MG/1 ML VIAL/CARP IV PRN (19:46)
--- NOTE | 2019-06-11 19:49 | Anesthesiology Consultation ---
Date of Service June 11, 2019 Assessment & Plan Chart Review Chart Review: Patient NOT seen in Pre Admission Testing and Acceptable Risk for Labor Epidural Consults Requested none ASA ASA2 Proposed Anesthesia Anesthesia Type: Labor Epidural and CSE Risk / Benefits Reviewed With: PT / POA / Parent / Guardian, Accepts Plan and Informed Consent Obtained History Height/Weight Height: 5 ft 6 in Weight: 83.915 kg Allergies Allergy/AdvReac Type Severity Reaction Status Date / Time No Known Drug Allergies Allergy Verified 06/08/19 11:36 Medications Home Medications Medication Instructions Recorded Confirmed Last Taken prenat.vits,brianne,kor-quni-prrca 1 tab PO DAILY 02/14/19 06/11/19 06/10/19 NPO Date Last Intake of Fluids: 06/11/19 Time Last Intake of Fluids: 14:00 Date Last Intake of Solids: 06/11/19 Time Last Intake of Solids: 12:00 Past Medical History Medical History Abscess of right breast History of anemia History of ovarian cyst History of varicella Exercise / Class Metabolic Activity II 4-5 Yardwork/Stairs/Walk up hill Past Family History Family History Father Hypertension Mother Cancer Past Surgical History Surgical History S/P knee surgery S/P tonsillectomy S/P wisdom tooth extraction Past Anesthesia History No Hx of Anesthesia Complications and No Family Hx of Anesthesia Complications History of PONV No Hx of PONV and No Hx of Motion Sickness Social History Smoking Status: Never smoker Hx Alcohol Use: No Hx Substance Use: No Review of Systems no chest pain or sob Physical Exam Vital Signs Last Vital Signs Temp 36.9 C 06/11/19 19:04 Pulse 107 H 06/11/19 19:03 Resp 18 06/11/19 19:04 BP 133/87 06/11/19 19:04 ENMT Mouth: no TMJ abnormality Thyromental Distance: > or= 3.5 Finger Breadths Mallampati Class: II Neck normal visual inspection Respiratory normal respiratory effort Auscultation: lungs clear to auscultation bilaterally Cardiovascular Rate/Rhythm: regular rate and regular rhythm Musculoskeletal Spine: normal cervical ROM Neurologic moves all extremities Psychiatric Orientation: alert and oriented x 3 Testing Laboratory Results 06/11/19 19:20
--- NOTE | 2019-06-11 20:07 | History & Physical Report ---
Date of Service June 11, 2019 Assessment & Plan (1) Supervision of normal intrauterine in multigravida: -Tracing category 2 with good variability -Patient comfortable with epidural -Anticipate vaginal delivery History of Present Illness Chief Complaint: Labor Primary Care Provider: NO PCP The patient is a 29-year-old 3 para 1 with an EDC of 17 June at 39+ weeks gestational age who presented to labor and delivery for labor check. Patient states her contractions began at approximately 1600 hrs. on day of admission. She denied rupture of membranes or vaginal bleeding. The patient has had a unremarkable course. Her blood type is AB+, antibody negative, rubella immune, hepatitis B negative, she had normal Glucola screening x2, and a negative third trimester beta strep culture. Patient declined all genetic screening for this . Allergies Allergy/AdvReac Type Severity Reaction Status Date / Time No Known Drug Allergies Allergy Verified 06/08/19 11:36 Home Medications Home Medications Medication Instructions Recorded Confirmed Type prenat.vits,brianne,zor-ekqn-wcvfs 1 tab PO DAILY 02/14/19 06/11/19 History Patient History Medical History Abscess of right breast History of anemia History of ovarian cyst History of varicella Surgical History S/P knee surgery S/P tonsillectomy S/P wisdom tooth extraction Family History Father Hypertension Mother Cancer Social History (Updated 02/20/19 @ 10:07 by Jessica Frank) Preferred Language: Nepalese Communication Ability: Effective Police Commanding Officer Required: No Beliefs That Will Affect Care: None marital status: Current Living Situation: Spouse Other Information That Helps Us Care for You: No Feels Safe at Home: Yes Safety Concerns: Feels Safe At This Time Smoking Status: Never smoker Hx Alcohol Use: No Hx Substance Use: No Physical Exam Constitutional: WD/WN, vitals as above Respiratory: Auscultation: lungs clear to auscultation bilaterally Cardiovascular: RRR, no murmur, no edema Extremities: no calf tenderness Gastrointestinal (Abdomen): Gravid, vertex, positive heart tones, estimated weight of 8 pounds Genitourinary: Cervix: 8 cm, 100%, +1 station, artificial rupture of membranes, clear fluid Results & Data Vital Signs (Past 12 Hours) Vital Signs Temp Pulse Resp BP Pulse Ox 06/11/19 20:05 108 H 139/85 06/11/19 20:03 95 H 126/77 99 06/11/19 20:01 85 126/73 06/11/19 19:59 81 125/74 06/11/19 19:58 83 100 06/11/19 19:57 97 H 137/76 06/11/19 19:53 93 H 100 06/11/19 19:49 83 134/73 06/11/19 19:48 86 100 06/11/19 19:04 98.4 F 18 133/87 06/11/19 19:03 107 H 133/87
--- NOTE | 2019-06-11 21:11 | Labor Progress Brief Note ---
Date of Service June 11, 2019 Subjective Reason For Note: Routine Evaluation Assessment & Plan (1) Supervision of normal intrauterine in multigravida: - begin 2nd stage Physical Exam Genitourinary: OB Exam Monitor Tracing: + category II and + normal FHT variability Cervix: Complete/BLADIMIR/(+)1-(+)2 Results & Data Vital Signs (Past 12 Hours) Vital Signs Temp Pulse Resp BP Pulse Ox 06/11/19 21:08 119 H 99 06/11/19 21:03 95 H 134/69 97 06/11/19 20:58 94 H 96 06/11/19 20:53 102 H 97 06/11/19 20:48 105 H 95 06/11/19 20:43 93 H 95 06/11/19 20:38 99 H 95 06/11/19 20:36 99 H 94 06/11/19 20:33 120 H 114/79 93 06/11/19 20:30 18 06/11/19 20:28 102 H 93 06/11/19 20:23 99 H 93 06/11/19 20:18 106 H 93 06/11/19 20:17 92 H 129/80 06/11/19 20:16 98 H 93 06/11/19 20:13 107 H 141/83 H 95 06/11/19 20:11 108 H 94 06/11/19 20:08 106 H 96 06/11/19 20:07 96 H 124/75 06/11/19 20:05 108 H 139/85 06/11/19 20:03 95 H 126/77 99 06/11/19 20:01 85 126/73 06/11/19 19:59 81 125/74 06/11/19 19:58 83 100 06/11/19 19:57 97 H 137/76 06/11/19 19:53 93 H 100 06/11/19 19:49 83 134/73 06/11/19 19:48 86 100 06/11/19 19:04 98.4 F 18 133/87 06/11/19 19:03 107 H 133/87
[2019-06-11] MEDS: OXYTOCIN 30 UNITS/500 ML BAG IV PRN ×2 (21:36→22:18)
--- NOTE | 2019-06-11 21:47 | Delivery Summary ---
Vaginal Delivery Summary Date of Service June 11, 2019 Vaginal Delivery Summary The patient is a 29-year-old 3 para 1 with an EDC of 17 June at 39+ weeks gestational age who presented to labor and delivery for labor check. Patient states her contractions began at approximately 1600 hrs. on day of admission. She denied rupture of membranes or vaginal bleeding. The patient has had a unremarkable course. Her blood type is AB+, antibody negative, rubella immune, hepatitis B negative, she had normal Glucola screening x2, and a negative third trimester beta strep culture. Patient declined all genetic screening for this . Upon admission the patient was 7 cm dilated, intact, and in active labor. Tracing was category 2. Anesthesia was consulted and an epidural was placed. Following placement of the epidural she had artificial rupture of membranes up. The patient shortly thereafter progressed to full dilatation and began her second stage. She pushed for approximately 15 minutes delivering the viable male infant. Cord was clamped and cut cord blood samples were obtained. Placenta was delivered spontaneously. Inspection of the perineum showed a second-degree midline laceration. This was repaired with 4-0 Vicryl in a routine fashion. Estimated blood loss was 300 cc. Sponge needle count was correct.
--- NOTE | 2019-06-11 22:13 | Anesthesia Procedure Note ---
Date of Service June 11, 2019 Anesthesia Post Epidural Note Vital Signs Vital Signs: Temp Pulse Resp BP Pulse Ox 37.6 C H 93 H 18 122/68 98 06/11/19 21:45 06/11/19 22:02 06/11/19 21:45 06/11/19 22:02 06/11/19 21:43 Notes Mental Status: alert / awake / arousable and participated in evaluation Nausea / Vomiting: adequately controlled Pain: adequately controlled Airway Patency, RR, SpO2: stable & adequate BP & HR: stable & adequate Hydration State: stable & adequate Neuraxial Anesthesia: was administered and sensory block is resolving Anesthetic Complications: no major complications apparent and Pt Satisfied with anesthetic care Epidural: Removed without complications and With tip intact
[2019-06-11] MEDS ORDERED: ACETAMINOPHEN 325 MG TAB PO PRN (22:26)
[2019-06-11] MEDS ORDERED: BENZOCAINE 20% AER SPR 82.5 GM CAN EXT PRN (22:26)
[2019-06-11] MEDS ORDERED: OXYTOCIN 30 UNITS/500 ML BAG IV PRN (22:26)
[2019-06-11] MEDS ORDERED: DIPHTHERIA/TETANUS/PERTUSSIS 0.5 ML SYR/VIAL IM ONE (22:26)
[2019-06-11] MEDS ORDERED: HYDROCORTISONE ACETATE 25 MG SUPP PR PRN (22:26)
[2019-06-11] MEDS ORDERED: SUPERCREAM 0.870% 15 GM JAR EXT PRN (22:26)
[2019-06-11] MEDS: IBUPROFEN 600 MG TAB PO PRN (23:37)
[2019-06-12] MEDS: IBUPROFEN 600 MG TAB PO PRN ×2 (06:07→16:58)
--- NOTE | 2019-06-12 06:15 | Obstetrical Progress Note ---
Date of Service June 12, 2019 Assessment & Plan (1) Status post vaginal delivery: Shantel is a 29 yo on PPD 1 after at 39w - GBS -, Blood Type AB+, Rubella immune -Vitals reviewed and WNL (Tmax 37.4) -Hemoglobin reviewed: 9.9 on admission, down to 9.2 (patient is asymptomatic) -patient is doing clinically well -social service consult placed (patient with positive MJ screen) Continue routine post- care - After discharge will have [address] Church. Supervising Physician Co-Signing Physician Notes Resident Physician Supervision Note: I was present with Dr. Meyer during the history and exam. I discussed the case with the resident and agree with the findings and plan as documented in the note. Any exceptions or clarifications are listed here: [None] Documented By: Hipolito Church Jr, MD, FACOG Subjective Ambulation: without difficulty Voiding: yes Passing Gas:: not yet Diet Tolerance:: regular; has only consumed several bites of breakfast tray Lochia:: moderate Feeding Type:: breast feeding Review of Systems Constitutional: no fever, no chills and no sweats Eyes: no worsening vision Respiratory: no cough and no dyspnea Cardiovascular: no chest pain, no palpitations, no lightheadedness, no edema and no calf pain Gastrointestinal: no nausea and no vomiting Genitourinary: no dysuria and no urinary frequency Neurologic: no headache(s) Physical Exam Constitutional: WD/WN, vitals as above no acute distress Respiratory: normal respiratory effort, lungs clear to auscultation does not use accessory muscles Auscultation: no crackles, no rales, no rhonchi, no wheezes and no pleural rub Cardiovascular: Rate/Rhythm: regular rate and regular rhythm Heart Sounds: normal S1 and normal S2; no gallop, no murmur and no cardiac rub Extremities: no calf tenderness and no pedal edema Gastrointestinal (Abdomen): Inspection/Auscultation: normal bowel sounds; abdomen not distended Percussion/Palpation: abdomen soft Genitourinary: Uterus: fundus firm, palpable 1 cm below the umbilicus Results & Data Vital Signs (Past 12 Hours) Vital Signs Temp Pulse Pulse Resp BP BP Pulse Ox 06/12/19 04:30 36.9 C 91 H 18 118/74 06/12/19 00:40 37.4 C 92 H 18 113/74 06/11/19 23:55 93 H 113/66 06/11/19 23:46 86 113/67 06/11/19 23:45 18 06/11/19 23:31 75 119/67 06/11/19 23:30 18 06/11/19 23:16 91 H 119/68 06/11/19 23:01 87 113/69 06/11/19 23:00 18 06/11/19 22:47 103 H 110/72 06/11/19 22:32 103 H 123/70 06/11/19 22:30 18 06/11/19 22:17 86 115/72 06/11/19 22:15 18 06/11/19 22:02 93 H 122/68 06/11/19 22:00 18 06/11/19 21:46 96 H 112/53 L 06/11/19 21:45 37.6 C H 18 06/11/19 21:44 110 H 107/56 L 06/11/19 21:43 108 H 98 06/11/19 21:38 110 H 99 06/11/19 21:33 104 H 98 06/11/19 21:32 100 H 152/87 H 06/11/19 21:30 18 06/11/19 21:28 141 H 99 06/11/19 21:23 156 H 99 06/11/19 21:18 117 H 99 06/11/19 21:15 18 06/11/19 21:13 123 H 98 06/11/19 21:08 119 H 99 06/11/19 21:03 95 H 134/69 97 06/11/19 20:58 94 H 96 06/11/19 20:53 102 H 97 06/11/19 20:48 105 H 95 06/11/19 20:43 93 H 95 06/11/19 20:38 99 H 95 06/11/19 20:36 99 H 94 06/11/19 20:33 120 H 114/79 93 06/11/19 20:30 18 06/11/19 20:28 102 H 93 06/11/19 20:23 99 H 93 06/11/19 20:18 106 H 93 06/11/19 20:17 92 H 129/80 06/11/19 20:16 98 H 93 06/11/19 20:13 107 H 141/83 H 95 06/11/19 20:11 108 H 94 06/11/19 20:08 106 H 96 06/11/19 20:07 96 H 124/75 06/11/19 20:05 108 H 139/85 06/11/19 20:03 95 H 126/77 99 06/11/19 20:01 85 126/73 06/11/19 19:59 81 125/74 06/11/19 19:58 83 100 06/11/19 19:57 97 H 137/76 06/11/19 19:53 93 H 100 06/11/19 19:49 83 134/73 06/11/19 19:48 86 100 06/11/19 19:04 36.9 C 18 133/87 06/11/19 19:03 107 H 133/87 Resident Activity Tracking Resident Involvement: Resident Care Provided Care Provided: OB Delivery
[2019-06-12 07:09] LABS: Hematocrit (blood only) 28.9 % (37-47); Hemoglobin 9.2 g/dL (12.0-16.0); Mean Corpuscular Hemoglobin 24.9 pg (25-34); Mean Corpuscular Hgb Conc 31.8 g/dL (32-36); Mean Corpuscular Volume 78.1 fL (80-100); Mean Platelet Volume 11.9 fL (7.4-10.4); Platelet Count 199 K/uL (130-400); RDW Coefficient of Variation 16.1 % (11.5-14.5); RDW Standard Deviation 46.2 fL (36.4-46.3); White Blood Count 10.91 K/uL (4.8-10.8)
[2019-06-12] MEDS: DOCUSATE SODIUM 100 MG CAP PO SCH ×2 (08:23→20:25)
[2019-06-12] MEDS: PRENATAL VITAMIN 1 TAB PO SCH (08:23)
[2019-06-12] MEDS: FERROUS SULFATE 325 MG TAB PO SCH (08:23)
[2019-06-12] MEDS ORDERED: BISACODYL 5 MG TABEC PO SCH (20:00)
--- NOTE | 2019-06-13 06:08 | Obstetrical Progress Note ---
Date of Service June 13, 2019 Assessment & Plan (1) Status post vaginal delivery: Shantle is a 29 yo on PPD 2 after at 39w - GBS -, Blood Type AB+, Rubella immune -Vitals reviewed and WNL (Tmax 37.4) -Hemoglobin reviewed: 9.9 on admission, down to 9.2 (patient is asymptomatic); started on oral iron supplement -patient is doing clinically well Discharge instructions reviewed. - After discharge will have [address] Church. Supervising Physician Co-Signing Physician Notes Resident Physician Supervision Note: I was present with Dr. Meyer during the history and exam. I discussed the case with the resident and agree with the findings and plan as documented in the note. Any exceptions or clarifications are listed here: [None] Documented By: Alondra Reynaga MD, FACOG Subjective Ambulation: without difficulty Voiding: yes Passing Gas:: yes Diet Tolerance:: regular Lochia:: mild Feeding Type:: breast feeding Review of Systems Constitutional: no fever, no chills and no sweats Eyes: no worsening vision Respiratory: no cough and no dyspnea Cardiovascular: no chest pain, no palpitations, no edema and no calf pain Gastrointestinal: no nausea and no vomiting Genitourinary: no dysuria and no urinary frequency Neurologic: no headache(s) Physical Exam Constitutional: WD/WN, vitals as above no acute distress Respiratory: normal respiratory effort, lungs clear to auscultation does not use accessory muscles Auscultation: no crackles, no rales, no rhonchi, no wheezes and no pleural rub Cardiovascular: Rate/Rhythm: regular rate and regular rhythm Heart Sounds: normal S1 and normal S2; no gallop, no murmur and no cardiac rub Extremities: no calf tenderness and no pedal edema Gastrointestinal (Abdomen): Inspection/Auscultation: normal bowel sounds; abdomen not distended Percussion/Palpation: abdomen soft Genitourinary: Uterus: fundus firm, palpable 2 cm below the umbilicus Results & Data Vital Signs (Past 12 Hours) Vital Signs Temp Pulse Resp BP Pulse Ox 06/12/19 23:30 36.5 C 66 16 117/80 99 06/12/19 20:10 37.0 C 70 18 107/67 98 Resident Activity Tracking Resident Involvement: Resident Care Provided Care Provided: OB Delivery
[2019-06-13] MEDS: FERROUS SULFATE 325 MG TAB PO SCH (08:51)
[2019-06-13] MEDS: PRENATAL VITAMIN 1 TAB PO SCH (08:51)
[2019-06-13] MEDS: DOCUSATE SODIUM 100 MG CAP PO SCH (08:51)
== END 2019-06-13 11:51 | disposition home or self-care (01) | DRG 807 ==
LOC: OPB 18:51 → 4S1 18:53 → 4S3 22:01 → 4S1 22:09 → 4S2 06-12 00:52